=== PATIENT | female | born 1975 | race African-American/Black ===

== ENCOUNTER 2017-10-10 20:34 | Emergency (ER) | payer BC, OTHER ==
[~2017-10-10] VITALS: Ht 170.2 cm; Wt 72.6 kg
[~2017-10-10 20:34] MED LIST: FLEXERIL PO; NORCO 5-325 TA1 EACH PO
[2017-10-10 21:45] LABS: HEMATOCRIT 40.9 % (37.0-47.0); HEMOGLOBIN 14.3 gm/dL (12.0-15.0); MCH 29.9 pg (26.0-34.0); MCHC 34.9 g/dL (28.0-37.0); MCV 85.6 fL (80.0-100.0); RBC 4.78 mil/uL (4.20-5.00); RDW 15.6 % (10.5-14.5); WBC 16.3 thou/uL (4.0-11.0)
[2017-10-10 22:03] LABS: URINE BLOOD 1+ (Negative); URINE CLARITY CLEAR; URINE COLOR YELLOW; URINE GLUCOSE-RANDOM* NEGATIVE (Negative); URINE KETONES NEGATIVE (Negative); URINE LEUKOCYTES-REFLEX NEGATIVE (Negative); URINE NITRITE-REFLEX NEGATIVE (Negative); URINE PROTEIN (DIPSTICK) TRACE (Negative); URINE SPECIFIC GRAVITY 1.025 (1.005-1.035)
[2017-10-10 22:06] LABS: ICTOTEST (BILI CONFIRMATORY) Negative (Negative); URINE BILIRUBIN NEGATIVE (Negative)
[2017-10-10 22:16] LABS: MUCUS >6 Heavy strn/LPF (None Seen); SQUAMOUS >10 Many /LPF (0-3); URINE RBC 3-10 Few /HPF (0-2); URINE WBC-REFLEX 0-5 Rare /HPF (0-5)
[2017-10-10 22:17] LABS: CASTS None Seen /LPF (None Seen); CRYSTALS None Seen /LPF (None Seen)
[2017-10-10 22:26] LABS: CALCIUM 9.9 mg/dL (8.5-10.1); CREATININE 0.8 mg/dL (0.6-1.0); POTASSIUM 3.4 mmol/L (3.5-5.1)
[2017-10-10 22:32] LABS: ALBUMIN 3.8 g/dL (3.4-5.0); TOTAL BILIRUBIN 0.7 mg/dL (<0.1-1.0); TOTAL PROTEIN 8.4 g/dL (6.4-8.2)
[2017-10-10] MEDS ORDERED: ONDANSETRON HCL4 M2 PO (22:49)
[2018-04-23] MEDS ORDERED: PEPCID20 MG PO (09:47)
[2018-04-23] MEDS ORDERED: ONDANSETRON HCL4 M2 PO (09:47)
== END 2017-10-10 23:58 | disposition home or self-care (01) ==
LOC: ER 20:34
PROVIDERS: Emergency Medicine
DX: R11.2 Nausea with vomiting, unspecified (principal); R19.7 Diarrhea, unspecified

== ENCOUNTER 2018-01-14 02:43 | Emergency (ER) | payer BC, OTHER ==
[~2018-01-14] VITALS: Ht 170.2 cm; Wt 75.8 kg
[~2018-01-14 02:43] MED LIST changes: +ONDANSETRON HCL4 M2 PO
[2018-01-14] MEDS ORDERED: AUGMENTIN 500-1 EACH PO (05:44)
[2018-01-14] MEDS ORDERED: FLOVENT HFA 4444 MCG INH (05:44)
[2018-01-14 05:59] LABS: ABSOLUTE NEUTROPHILS 4.8 thou/uL (1.4-8.2); BASOPHILS 0.8 % (0.0-2.0); EOSINOPHILS 2.3 % (0.0-3.0); HEMATOCRIT 36.1 % (37.0-47.0); LYMPHOCYTES 40.6 % (24.0-44.0); MCH 29.6 pg (26.0-34.0); MCHC 33.3 g/dL (28.0-37.0); MCV 88.8 fL (80.0-100.0); MONOCYTES 8.2 % (1.0-8.0); PLATELET COUNT 341 thou/uL (150-400); POLYS 48.1 % (36.0-66.0); RBC 4.07 mil/uL (4.20-5.00); RDW 14.6 % (10.5-14.5)
[2018-01-14 06:04] LABS: CREATININE 0.7 mg/dL (0.6-1.0); POTASSIUM 3.5 mmol/L (3.5-5.1)
[2018-01-14 06:07] VITALS: BP 121/85
== END 2018-01-14 06:14 | disposition home or self-care (01) ==
LOC: ER 02:43
PROVIDERS: Emergency Medicine
DX: J18.1 Lobar pneumonia, unspecified organism (principal); J04.0 Acute laryngitis; J06.9 Acute upper respiratory infection, unspecified; Z90.2 Acquired absence of lung [part of]